=== PATIENT | female | born 1970 | race Caucasian/White ===

== ENCOUNTER → 2017-07-22 | Outpatient (REF) | payer OTHER ==
[2017-07-22 17:54] LABS: ALBUMIN 3.7 GM/DL (3.2-5.2); ALKALINE PHOSPHATASE 54 U/L (45-117); ALT/SGPT 26 U/L (12-78); ANION GAP 8 MEQ/L (8-16); AST/SGOT 13 U/L (7-37); BILIRUBIN,TOTAL 0.2 MG/DL (0.2-1.0); BLOOD UREA NITROGEN 11 MG/DL (7-18); CALCIUM LEVEL 9.3 MG/DL (8.5-10.1); CARBON DIOXIDE LEVEL 27 MEQ/L (21-32); CHLORIDE LEVEL 107 MEQ/L (98-107); CREATININE FOR GFR 0.55 MG/DL (0.55-1.30); GLOMERULAR FILTRATION RATE > 60.0 (>58); GLUCOSE, FASTING 88 MG/DL (70-100); POTASSIUM SERUM 4.1 MEQ/L (3.5-5.1); SODIUM LEVEL 142 MEQ/L (136-145); TOTAL PROTEIN 7.8 GM/DL (6.4-8.2)
[2017-07-22 18:06] LABS: ESTIMATED AVERAGE GLUCOSE 120 MG/DL (60-110); HEMOGLOBIN A1c 5.8 %
== END ==
LOC: M SFHCCLAY 10:57
DX: Z86.39 Personal history of other endocrine, nutritional and metabolic disease (principal)

== ENCOUNTER 2019-02-19 08:23 | Emergency (ER) | payer SELFPAY ==
[~2019-02-19] VITALS: Ht 160 cm; Wt 86.4 kg
[2019-02-19] MEDS ORDERED: IBUP-1114 PO (08:38)
[2019-02-19 09:54] LABS: HEMATOCRIT 45.3 % (36.0-47.0); HEMOGLOBIN 14.9 g/dl (12.0-15.5); MEAN CORPUSCULAR HEMOGLOBIN 31.4 pg (27.0-33.0); MEAN CORPUSCULAR HGB CONC 32.9 g/dl (32.0-36.5); MEAN CORPUSCULAR VOLUME 95.6 fl (80.0-96.0); PLATELET COUNT, AUTOMATED 237 10^3/uL (150-450); RED BLOOD COUNT 4.74 10^6/uL (4.00-5.40); WHITE BLOOD COUNT 7.6 10^3/uL (4.0-10.0)
[2019-02-19 10:09] LABS: BLOOD UREA NITROGEN 12 MG/DL (7-18); C REACTIVE PROTEIN QUANTITATIV 0.73 MG/DL (0.00-0.30); CALCIUM LEVEL 9.5 MG/DL (8.5-10.1); CARBON DIOXIDE LEVEL 25 MEQ/L (21-32); CHLORIDE LEVEL 108 MEQ/L (98-107); CREATININE FOR GFR 0.82 MG/DL (0.55-1.30); GLOMERULAR FILTRATION RATE > 60.0 (>58); GLUCOSE, FASTING 114 MG/DL (70-100); POTASSIUM SERUM 3.9 MEQ/L (3.5-5.1); SODIUM LEVEL 142 MEQ/L (136-145)
--- NOTE | 2019-02-19 10:36 | REP ---
Clinical: Weakness. Headache . Comparison: None . Findings: The ventricles, sulci, and cisterns are normal in position and appearance. Sherman-white differentiation is maintained. No acute intracranial hemorrhage, mass/mass effect, pathology or trauma/injury. No evidence for acute infarction. No extra-axial fluid collection. Calvarium is intact. Paranasal sinuses and mastoid air cells are clear. Impression: Normal noncontrast head CT. No evidence for acute intracranial pathology or trauma/injury. Electronically Signed by Danny Gutierrez MD 02/19/2019 10:28 A
[2019-02-19 10:47] LABS: ERYTHROCYTE SEDIMENTATION RATE 18 mm/hr (0-20)
--- NOTE | 2019-02-19 10:53 | REP ---
Clinical: Pain. Weakness. Technique: Axial noncontrast images of the thoracic spine with coronal and sagittal re-formations. Findings: Thoracic vertebral bodies are intact. Disc spaces are maintained and normal. Alignment and kyphosis is normal. Posterior elements and spinous processes are intact. Spinal canal is patent. Impression: Normal thoracic spine CT. Electronically Signed by Danny Gutierrez MD 02/19/2019 10:44 A
--- NOTE | 2019-02-19 10:57 | REP ---
Clinical: Pain and weakness. Technique: Axial noncontrast images from T12 through sacrum with coronal and sagittal re-formations. Findings: Vertebral bodies are intact and without acute fracture / compression injury or subluxation. Alignment and lordosis maintained. Mild endplate sclerosis with marginal spurring/early osteophyte formation and small posterior disc bulges at L4-5 and L5-S1 are appreciated without evidence for canal stenosis. Posterior elements and spinous processes are intact. Neural foramen appear patent. Impression: Mild degenerative spondylosis at L4-5 and L5-S1. Electronically Signed by Danny Gutierrez MD 02/19/2019 10:49 A
[2019-02-19 11:47] VITALS: BP 129/72
[2019-02-19] MEDS ORDERED: PRED20TA PO (12:22)
== END 2019-02-19 12:53 | disposition home or self-care (01) ==
LOC: M ED 08:23
DX: S39.012A Strain of muscle, fascia and tendon of lower back, initial encounter (principal); M47.27 Other spondylosis with radiculopathy, lumbosacral region; X50.0XXA Overexertion from strenuous movement or load, initial encounter; Y92.009 Unspecified place in unspecified non-institutional (private) residence as the place of occurrence of the external cause; R51 Headache

== ENCOUNTER → 2019-03-01 | Outpatient (CLI) | payer SELFPAY ==
[~2019-03-01] MED LIST: IBUP-1114 PO; PRED20TA PO
--- NOTE | 2019-03-01 12:02 | REP ---
MRI of the lumbar spine without contrast Indication: Radiculopathy, lumbar region. Paresthesia scan. Low back pain. Comparison: CT of the lumbar spine of 02/19/2019. Technique: MRI of the lumbar spine was performed utilizing sagittal STIR, T1 and T2, and axial T1 and T2 weighted imaging. No intravenous contrast was administered. Findings: There is normal alignment and curvature of the lumbar spine. There are partial fatty and edematous marrow endplate changes at L4-L5. No suspicious focal marrow lesion is identified. Vertebral body heights and intervertebral disc heights are maintained. The visualized spinal cord is normal. The conus medullaris terminates at the level of L1. 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 Level specific observations: L1-L2, L2-L3, L3-L4: No significant spinal canal stenosis or neural foraminal narrowing. L4-L5: Diffuse disc bulge with superimposed central disc extrusion with inferior migration. There is anterior epidural space lesion of higher signal intensity posterior to the extruded disc and superficial to the posterior longitudinal ligament which extends 2 cm superiorly, causing right lateral recess stenosis and abutting and compressing the ventral margin of the thecal sac and descending right L5 nerve root. There is may also represent extruded disc versus sequestrum. Mild neural foraminal narrowing, greater on the right. L5-S1: Mild disc bulge eccentric to the left. Impression: Central disc extrusion at L4-L5. A portion of the extruded versus sequestered disc extends 2 cm superiorly causing stenosis of the right lateral recess and right greater than left neural foraminal narrowing as well as abutting the ascending right L5 nerve root. Electronically Signed by Benigno Espinoza MD 03/01/2019 11:53 A
== END ==
LOC: M RAD 09:10
PROVIDERS: ATTEND Psychiatry & Neurology Neurology
DX: M54.5 Low back pain (principal)

== ENCOUNTER 2019-03-18 09:30 | Outpatient (RCR) | payer SELFPAY | END 2019-03-21 | LOC: M PT 09:30 | PROVIDERS: ATTEND Psychiatry & Neurology Neurology | DX: Z51.89 Encounter for other specified aftercare (principal); M54.5 Low back pain ==

== ENCOUNTER 2019-03-22 08:40 | Emergency (ER) | payer SELFPAY ==
[~2019-03-22] VITALS: Ht 160 cm; Wt 86.4 kg
--- NOTE | 2019-03-22 10:21 | REP ---
REASON: Pain and swelling. TECHNIQUE: Multiple ultrasonographic images of the deep venous structures of the left thigh were obtained from the common femoral vein to the popliteal vein along with Doppler interrogation and color flow Doppler images. FINDINGS: There is no abnormal echogenic material seen within any of the visualized deep venous structures that would suggest acute thrombosis. Coaptation is unremarkable throughout. Doppler interrogation shows an expected response to respiratory variability and augmentation. The color flow images show what appears to be a normal vascular pattern throughout. IMPRESSION: There is no ultrasonographic evidence of deep venous thrombosis involving any of the visualized deep venous structures of the left thigh, as described above. Electronically Signed by Lauri Do DO 03/22/2019 02:36 P
[2019-03-22 10:29] VITALS: BP 115/61
== END 2019-03-22 10:42 | disposition home or self-care (01) ==
LOC: M ED 08:40
DX: M79.605 Pain in left leg (principal); M51.9 Unspecified thoracic, thoracolumbar and lumbosacral intervertebral disc disorder

== ENCOUNTER 2019-04-15 09:30 | Outpatient (RCR) | payer SELFPAY | END 2019-04-21 | LOC: M PT 09:30 | PROVIDERS: ATTEND Psychiatry & Neurology Neurology | DX: M54.5 Low back pain (principal) ==

== ENCOUNTER 2019-04-26 10:41 | Day surgery (SDC) | payer SELFPAY ==
[~2019-04-26] VITALS: Ht 160 cm; Wt 95.3 kg
[~2019-04-26 10:41] MED LIST changes: +CelecoXIB 400 MG CAP PO ONE; +GABAPENTIN 300 MG CAP PO ONE; +LR 1,000 ML IV SCH; +PERCOCET 5MG/325MG TAB PO ONE; +ceFAZolin SOD 2 GM in IV 1 EA IV ONE
[2019-04-26] MEDS ORDERED: TRANEXAMIC ACID 100 MG/ML 10ML VIAL As Ordered ONE ×2 (11:45→15:48)
[2019-04-26] MEDS ORDERED: THROMBIN SOLN 20,000 UNITS KIT As Ordered ONE (11:45)
[2019-04-26] MEDS ORDERED: BUPIVACAINE/EPIN 0.5% 30 ML VIAL As Ordered ONE (11:45)
[2019-04-26] MEDS ORDERED: EPINEPHrine INJ 1 MG/ML 1ML AMP As Ordered ONE (11:45)
[2019-04-26] MEDS ORDERED: BUPIVACAINE LIPOSOME/PF 1.3% 20ML VIAL (13.3MG/ML)(EXPAREL)(C9290 PER1MG) As Ordered ONE (11:45)
[2019-04-26] MEDS ORDERED: BUPIVACAINE HCL 0.25% 10 ML VIAL As Ordered ONE (11:45)
[2019-04-26] MEDS ORDERED: BACITRACIN PWD 50,000 UNITS VIAL As Ordered ONE (11:46)
[2019-04-26] MEDS ORDERED: ROCURONIUM BROMIDE 50 MG/5 ML VIAL As Ordered ONE (12:56)
[2019-04-26] MEDS ORDERED: LIDOCAINE 2% INJ 100 MG/5 ML SDV (FOR ANES.) As Ordered ONE (12:56)
[2019-04-26] MEDS ORDERED: PROPOFOL 200 MG/20 ML VIAL As Ordered ONE (12:56)
[2019-04-26] MEDS ORDERED: fentaNYL 100 MCG/2 ML INJECTION (J3010) As Ordered ONE ×2 (12:56→15:18)
[2019-04-26] MEDS ORDERED: MIDAZOLAM INJ 2 MG/2 ML VIAL (J2250) As Ordered ONE (12:56)
[2019-04-26] MEDS ORDERED: dexameTHASONE 4 MG/ML 1ML VIAL (J1100) As Ordered ONE (13:38)
[2019-04-26] MEDS ORDERED: MORPHINE 10 MG/ML 1ML VIAL (J2270) As Ordered ONE (13:40)
[2019-04-26] MEDS ORDERED: ONDANSETRON 4MG/2ML VIAL (J2405) As Ordered ONE (13:59)
[2019-04-26] MEDS ORDERED: METOCLOPRAMIDE INJ 10MG/2ML VIAL (J2765) As Ordered ONE (13:59)
[2019-04-26] MEDS ORDERED: PHENYLephrine HCL 500 MCG/5 ML (100MCG/ML) SYRINGE (J2370) As Ordered ONE (14:03)
[2019-04-26] MEDS ORDERED: ePHEDrine SULFATE 25 MG/5 ML(5MG/ML) SYRINGE As Ordered ONE (14:21)
[2019-04-26] MEDS ORDERED: SUGAMMADEX SODIUM 500 MG/5 ML VIAL (BRIDION) As Ordered ONE (15:19)
[2019-04-26] MEDS ORDERED: ACETAMINOPHEN 1000MG 100ML IV BTL (OFIRMEV) (J0131 PER 10MG) As Ordered ONE (15:26)
[2019-04-26] MEDS: EPINEPHrine INJ 1 MG/ML 1ML AMP As Ordered ONE ×2 (15:49→16:36)
[2019-04-26] MEDS ORDERED: PERCOCET 5MG/325MG TAB PO PRN ×2 (17:00→17:15)
[2019-04-26] MEDS ORDERED: HYDROMORPHONE HCL 0.5 MG/ 0.5 ML SYRINGE (J1170 PER 1) IV PRN ×2 (17:00→17:30)
[2019-04-26] MEDS ORDERED: LR 1,000 ML IV SCH ×2 (17:00→17:15)
[2019-04-26] MEDS ORDERED: ONDANSETRON 4MG/2ML VIAL (J2405) IV PRN ×2 (17:00→20:30)
[2019-04-26] MEDS ORDERED: fentaNYL 100 MCG/2 ML INJECTION (J3010) IV PRN (17:00)
--- NOTE | 2019-04-26 17:13 | REP ---
Single lateral intraoperative view of the lumbosacral spine: 04/26/2019. Indication: Intraoperative localization. Comparison: 03/01/2019 and 02/19/2019. Findings: Image quality is suboptimal, however, the distal tip of the localizing instrument appears to be posterior to the L4/L5 intervertebral disc. Impression: Apparent localization of L4/L5. Electronically Signed by Melo Montemayor DO 04/26/2019 05:03 P
[2019-04-26] MEDS ORDERED: ACETAMINOPHEN TAB 650MG DOSE (2X325MG) PO PRN (17:15)
[2019-04-26 19:15] VITALS: BP 112/63
[2019-04-26 20:45] VITALS: BP 117/72
[2019-04-26 22:11] VITALS: BP 106/60
--- NOTE | 2019-04-26 23:22 | RO ---
DATE OF PROCEDURE: 04/26/2019 PREOPERATIVE DIAGNOSIS: Right L4-5 disc extrusion/herniated nucleus pulposus with right lower extremity radiculopathy. POSTOPERATIVE DIAGNOSIS: Right L4-5 disc extrusion/herniated nucleus pulposus with right lower extremity radiculopathy. INTRAOPERATIVE FINDINGS: Include a large superiorly migrated disc herniation at L4-5 extending nearly to the neural foramina/L3-4 level. PROCEDURE PERFORMED: Right unilateral laminectomy for decompression of the thecal sac, traversing the exiting nerve root, removal of disc material as a consequence of right unilateral laminectomy. SURGEON: Dr. Blair Hunt BUTTER FAT TESTER: Kareem Barnett, Physician Traffic Signal Supervisor Maintenance ANESTHESIA: General endotracheal. ESTIMATED BLOOD LOSS: Less than the 150 mL, replaced with crystalloid. No complications. INDICATIONS: Constant numbness and tingling in the right lower extremity, pain, symptoms ongoing for more than a month, MRI evidence of a large disc extrusion producing significant spinal stenosis. The patient elects for operative intervention. Consent reviewed in detail including a ganesh discussion of the pathology involved, the procedure proposed, alternatives including doing nothing and risks including but not limited to pain, failure, infection, bleeding, blood loss, incomplete relief of symptoms, need for additional surgery, nerve injury and other issues. The patient agrees to proceed. DESCRIPTION OF PROCEDURE: Identified in the holding area, site and side verified, brought to the operating room. Once anesthesia was administered, she was positioned in the prone position on the Satya frame for exposure. Once I and the orthodontist assistant were comfortable with the patient's positioning, she was then sterilely prepped and draped in the usual fashion. Next, the incision was based on palpation of the iliac crests. The incision was outlined with a marking pen, infiltrated with 0.25% Marcaine with epinephrine once the patient was prepped and draped. Next, the incision was made with a 10 blade knife, developed down through skin and subcuticular tissues to the posterior lumbar fascia. Posterior lumbar fascia was identified. Incision made in the posterior lumbar fascia which was reflected off the spinous processes of L4 and L5. Next, a divot was drilled in the posterior lamina of L4, and a Corona-Matheus probe was placed in the divot, cross-table lateral was taken for localization. Next, the dissection was developed further superiorly exposing the lamina of L4. Operating microscope was then sterilely draped and brought in for addition portion of the procedure. Mr. Barnett looked through oculars on the left, I through oculars on the right. Leksell was utilized to remove inferior posterior lamina of L4. High-speed bur was then utilized under direct visualization to continue the dissection of L4 through the L4 lamina across the bare area into the interlaminar space of L3-L4 and into the bare area at L4-L5. Ligamentum flavum was elevated with pituitaries, curettes and Kerrisons used to remove ligamentum flavum. Next, the disc herniation was quite superiorly migrated in the axillary position. I was able to expose the caudal portion of it at the axilla of the exiting nerve root. I utilized Calles pituitaries as well as a Corona-Matheus to tease additional extruded disc material free, again removed using Calles pituitaries. Bipolar cautery was utilized for hemostasis. I probed from the disc space at L4-L5 superiorly and up to the shoulder of the exiting nerve root. Next, once I was comfortable that all the significant extruded fragment was removed, I probed over the disc. No severe bulging was appreciated at the disc annulus complex. Irrigation was accomplished. No active bleeding was appreciated at the conclusion of the case. After irrigation, including irrigation with TXA, posterior lumbar fascia was reapproximated. Exparel solution was utilized in the fascial tissues and the subcuticular tissues for perioperative pain management. Deep dermis was approximated with interrupted stitch. Prineo dressing was applied. The patient was then log-rolled to hospital bed, extubated and moved to recovery room in good condition. For further details, please refer to the medical record.
[2019-04-27 00:47] VITALS: O2SAT 97
[2019-04-27 02:20] VITALS: BP 99/55
[2019-04-27 06:25] VITALS: BP 115/63
[2019-04-27] MEDS ORDERED: PERC5TAB12 PO (06:26)
[2019-04-27] MEDS: PERCOCET 5MG/325MG TAB PO PRN ×2 (08:02→12:08)
[2019-04-27] MEDS ORDERED: CelecoXIB 400 MG CAP PO ONE (09:00)
[2019-04-27 10:00] VITALS: BP 99/55
== END 2019-04-27 15:00 | disposition home or self-care (01) ==
LOC: M SDC 10:41 → M MS5PR 18:50 → M SDC 04-27 15:00
PROVIDERS: ATTEND Orthopaedic Surgery
DX: M51.26 Other intervertebral disc displacement, lumbar region (principal); E66.9 Obesity, unspecified
CPT/HCPCS: 36415; 63030; 72110; 81025; 86850; 86900; 86901; 88304; C9290; J0131; J0690; J1100; J2250; J2270; J2370; J2405; J2765; J3010

== ENCOUNTER → 2019-05-12 | Outpatient (CLI) | payer SELFPAY ==
[~2019-05-12] MED LIST changes: -CelecoXIB 400 MG CAP PO ONE; -GABAPENTIN 300 MG CAP PO ONE; -LR 1,000 ML IV SCH; +PERC5TAB12 PO; -PERCOCET 5MG/325MG TAB PO ONE; +PROHANCE 279.3MG/ML 15ML VIAL (A9576) As Ordered ONE; +PROHANCE 279.3MG/ML 5ML VIAL (A9576) As Ordered ONE; -ceFAZolin SOD 2 GM in IV 1 EA IV ONE
--- NOTE | 2019-05-12 09:15 | REP ---
MRI lumbar spine: 05/12/2019. Indication: Low back pain. Comparison: 03/01/2019. Technique: Multiplanar short and long TR sequences of the lumbar spine were obtained including post-gadolinium imaging. 19 ml IV ProHance were administered. Findings: Postoperative sequelae are present status post right-sided L4/L5 hemilaminectomy and microdiskectomy. There is a peripherally enhancing 4.6 x 3.7 x 2.8 cm CSF intense collection within the posterior paraspinal tissues at the operative site. Dural enhancement is noted at the operative site without fluid collection within the spinal canal. No worrisome marrow or cord signal is present. Aside from L4/L5, the findings are unchanged. L4/L5: Postoperative sequelae are present with a posterior central disc extrusion which is more pronounced left of midline. There is 4 mm of caudal migration best appreciated on the post-gadolinium sagittal image 8/page 8. Impression: Postoperative sequelae as described. Posterior paraspinal soft tissue fluid collection likely represents a seroma, however, infection, hematoma and pseudomeningocele are not entirely excluded. Please correlate. Residual/recurrent posterior central L4/L5 disc herniation. Electronically Signed by Melo Montemayor DO 05/12/2019 09:06 A
== END ==
LOC: M RAD 06:57
PROVIDERS: ATTEND Orthopaedic Surgery
DX: M51.16 Intervertebral disc disorders with radiculopathy, lumbar region (principal)
CPT/HCPCS: 72158; A9576